=== PATIENT | female | born 1985 | race Caucasian/White ===

== ENCOUNTER 2019-06-24 08:00 | Inpatient (IN) | payer BC, OTHER ==
[~2019-06-24] VITALS: Ht 170.2 cm; Wt 98.9 kg
[2019-06-24] VITALS (41 sets, daily range): BP systolic 109–152; BP diastolic 57–87
--- NOTE | 2019-06-24 07:40 | Discharge Instructions ---
Discharge Instructions Discharge Medications New, Converted or Re-Newed RX: RX on Chart Patient Instructions Return to The Hospital For: As directed Activity & Diet Discharge Diet: No Restrictions Activity as Tolerated: No Orders-Post D/C & Referrals Follow Up Appt: Call to make follow up appt. for patient in 4 weeks. Activity Per routine post vaginal delivery instructions. Please call in RX to patient pharmacy. Diet as tolerated Patient may shower or tub bathe as desired. KIARA VEGAS MD Jun 24, 2019 07:40
--- NOTE | 2019-06-24 07:44 | History & Physical ---
History and Physical Date Seen by Provider: Jun 24, 2019 Time Seen by Provider: 09:00 This patient is a 34-year-old white female admitted at 39 4/7 weeks' gestation for labor induction. Her cervix is favorable at 4 cm and 70 TO 80 percent with presenting part vertex at 0 to -1 station. Cervix is anterior and soft. Patient denies rupture membranes or bleeding. She's had no problems with this . Her GBS culture was negative. Allergies are none Medications are vitamins HEENT exam is normal Neck is supple no lymphadenopathy no thyromegaly Abdomen is gravid soft nontender nondistended Extreme show no clubbing or cyanosis. There is no time. Pelvic exam is pending - last exam in clinic showed a cervix 4 cm dilated 70-80 percent effaced and 0 to -1 station vertex presentation with the cervix it was soft stretchy and anterior Assessment and plan term at 39+ weeks gestation admitted now for elective induction of labor anticipation is for a vaginal delivery 39+ week elective labor induction. Allergies and Home Medications Allergies Coded Allergies: No Known Drug Allergies (Unverified , 09/05/12) Home Medications Hydrocodone Bit/Acetaminophen 1 Tab Tablet, 1-2 TAB PO Q3HRS PRN, (Reported) Ibuprofen 800 Mg Tab, 800 MG PO Q8HR, (Reported) Patient Home Medication List Home Medication List Reviewed: Yes KIARA VEGAS MD Jun 24, 2019 07:44
[~2019-06-24 08:00] MED LIST: ACHYD1T PO; IBP800T PO; PREN-115 PO
--- NOTE | 2019-06-24 09:53 | NUR ---
OLINDA HUERTA presented to unit from home, accompanied by , with c/o INDUCTION. OLINDA HUERTA weighed, gowned, voided, and to bed. EFHM and TOCO applied, VS taken. OLINDA HUERTA oriented to bed controls, call light, TV, heat, and A/C controls.
[2019-06-24] MEDS ORDERED: D5 LR IV SOLUTION 1,000 ML IV SCH (10:24)
[2019-06-24 10:38] LABS: BASOPHILS % (AUTO) 0 % (0-10); EOSINOPHILS # (AUTO) 0.1 10^3/uL (0.0-0.3); EOSINOPHILS % (AUTO) 1 % (0-10); HEMATOCRIT 37 % (35-52); HEMOGLOBIN 12.7 G/DL (11.5-16.0); LYMPHOCYTES # (AUTO) 2.3 X 10^3 (1.0-4.0); LYMPHOCYTES % (AUTO) 21 % (12-44); MEAN CORPUSCULAR HEMOGLOBIN 28 PG (25-34); MEAN CORPUSCULAR HGB CONC 34 G/DL (32-36); MEAN CORPUSCULAR VOLUME 83 FL (80-99); MEAN PLATELET VOLUME 12.2 FL (7.4-10.4); MONOCYTES # (AUTO) 0.4 X 10^3 (0.0-1.0); MONOCYTES % (AUTO) 4 % (0-12); NEUTROPHILS % (AUTO) 74 % (42-75); PLATELET COUNT 207 10^3/uL (130-400); RED CELL DISTRIBUTION WIDTH 13.9 % (10.0-14.5); WHITE BLOOD COUNT 10.8 10^3/uL (4.3-11.0)
[2019-06-24] MEDS ORDERED: SUFENTA 0.6MCG/ML BUPIVA 0.125 100 ML ONE (11:03)
[2019-06-24] MEDS ORDERED: BUPIVACAINE 0.25% 30 ML (SENSORCAINE) VIAL ONE (11:28)
[2019-06-24] MEDS ORDERED: fentaNYL INJECTION 100 MCG/2 ML AMP ONE (11:29)
--- NOTE | 2019-06-24 11:29 | NUR ---
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 Procedure explained, consent reviewed and signed by anesthesia. Questions answered to patient's satisfaction. Time out taken to verify correct patient/procedure. Patient up to side of bed, assisted into sitting position. Betadine prep done x3 and sterile drape applied. Local done, see anesthesia record. Test dose given, see anesthesia record for drug and dosage. Epidural catheter secured in place. Epidural placement complete. Assisted back into bed, monitors adjusted. Epidural dosed, see anesthesia record. Epidural of Sufenta/Bupivicaine @ 12 cc/hr stated per pump. Patient tolerated procedure well.
[2019-06-24] MEDS ORDERED: LACTATED RINGERS 1,000 ML IV SCH (12:14)
[2019-06-24] MEDS ORDERED: NALOXONE 0.4 MG/ML 1 ML (NARCAN) VIAL IV PRN ×2 (12:15)
[2019-06-24] MEDS ORDERED: METOCLOPRAMIDE INJ 10 MG/2 ML (REGLAN) IV PRN (12:15)
[2019-06-24] MEDS ORDERED: EPIDURAL (SUFENTA 0.6MCG/ML BUPIVA 0.125%) 100 ML BAG EPI PRN (12:15)
[2019-06-24] MEDS ORDERED: diphenhydrAMINE 50 MG/ML INJ (BENADRYL) IV PRN (12:15)
[2019-06-24] MEDS ORDERED: ONDANSETRON 4 MG/2 ML (SDV) Z0FRAN IV PRN (12:15)
[2019-06-24] MEDS ORDERED: OXYTOCIN/NORMAL SALINE 500 ML IV ONE (13:08)
[2019-06-24] MEDS ORDERED: OXYTOCIN/NORMAL SALINE 500 ML IV SCH ×2 (13:13→17:34)
[2019-06-24] MEDS ORDERED: CITRIC ACID/SOB CIT (BICITRA) 30 ML UDC ONE (13:52)
[2019-06-24] MEDS ORDERED: FAMOTIDINE 20MG/2ML IV (PEPCID) IVP PRN (14:00)
[2019-06-24] MEDS ORDERED: CITRIC ACID/SOB CIT (BICITRA) 30 ML UDC PO ONE (14:00)
[2019-06-24] MEDS ORDERED: LIDOCAINE/EPI 2% 1:200,00 (XYLOCAINE) 10 ML VIAL ONE (16:47)
[2019-06-24] MEDS ORDERED: KETOROLAC 30 MG/ML VIAL ONE (17:44)
[2019-06-24] MEDS ORDERED: oxyCODONE/APAP 5/325MG (PERCOCET 5) TABLET PO PRN (17:45)
[2019-06-24] MEDS ORDERED: TETANUS,DIPTH,PERTUSS P/F (BOOSTRIX) 0.5 ML VIAL IM ONE (17:45)
[2019-06-24] MEDS ORDERED: KETOROLAC 30 MG/ML VIAL IVP PRN (17:45)
[2019-06-24] MEDS ORDERED: ONDANSETRON 4 MG/2 ML (SDV) Z0FRAN IVP PRN (17:45)
[2019-06-24] MEDS ORDERED: BENZOCAINE/MENTHOL (DERMOPLAST) 56 ML CAN TP PRN (17:45)
--- NOTE | 2019-06-24 19:30 | NUR ---
Report to Kimberly Grove RN.
--- NOTE | 2019-06-24 20:00 | NUR ---
Pt up to bathroom first time since delivery, first void, pericare with assist, to wc, and tx to pp unit room 312. Oriented to call system, surroundings, and info packet, denies needs. Will cont to monitor.
[2019-06-25] MEDS ORDERED: IBUPROFEN 800 MG (MOTRIN) TAB PO ONE ×2 (00:33→06:26)
[2019-06-25 00:36] VITALS: BP 111/67
[2019-06-25] MEDS: IBUPROFEN 800 MG (MOTRIN) TAB PO SCH ×4 (00:36→18:25)
[2019-06-25] MEDS: DOCUSATE SODIUM 100 MG (COLACE) CAP PO SCH ×2 (00:36→12:00)
--- NOTE | 2019-06-25 00:56 | OPERATIVE REPORT ---
DATE OF SERVICE: 06/24/2019 The patient delivered by term spontaneous vaginal delivery at 39+ weeks gestation a viable male infant with Apgars of 8 and 9 at 1 and 5 minutes respectively, weight of 7 pounds 6 ounces. Cord blood gas of 7.22 and a time of 1705. Delivery was accomplished over a midline episiotomy that was performed when the perineal body began to tear and then mom was unable to push the baby through the perineal body. The episiotomy was performed under the epidural anesthesia that had been augmented with local in the perineal body. The delivered promptly. There was a nuchal cord x1 that was easily released. The was bulb suctioned on delivery of the head and again on completion of delivery. The umbilical cord was doubly clamped, father cut the cord, the baby was passed to mom's abdomen. Cord bloods were obtained. Placenta delivered spontaneously Lorenzo. It was normal with a 3-vessel cord. The cervix, perineal body, vaginal swartz and rectum were examined and found intact, except for the midline episiotomy, which was repaired in the usual manner with a 3-0 Vicryl suture to good hemostasis and good reapproximation. Sponge and needle counts were correct on completion of the delivery and repair. Estimated blood loss was around 200 mL. The patient remained in the LDR for recovery. The baby remained with mom. Job ID: [id number] DocumentID: [id number] Dictated Date: 06/24/2019 17:22:27 Paint Line Operator Date: 06/25/2019 00:31:35 Dictated By: KIARA VEGAS MD
[2019-06-25] MEDS ORDERED: CALCIUM CARBONATE 500 MG (TUMS) TAB.CHEW ONE (04:04)
[2019-06-25] MEDS ORDERED: CALCIUM CARBONATE 500 MG (TUMS) TAB.CHEW PO PRN (04:45)
[2019-06-25 06:29] VITALS: BP 91/54
--- NOTE | 2019-06-25 06:38 | Anesthesia-Regional Post-Op ---
Regional Patient Condition Mental Status: Alert, Oriented x3 Circulation: Same as Pre-Op Headache: Absent Sensation: Full Recovery Motor Block: Absent Post Op Complications Complications None Follow Up Care/Instructions Patient Instructions None needed. Anesthesia/Patient Condition Patient is doing well, no complaints, stable vital signs, no apparent adverse anesthesia problems. No complications reported per nursing. LINDA ANTHONY CRNA Jun 25, 2019 06:38
[2019-06-25 07:42] VITALS: BP 115/74
--- NOTE | 2019-06-25 07:42 | NUR ---
initial shift assessment completed, see interventions for further. POC reviewed, states understanding.
--- NOTE | 2019-06-25 07:51 | Progress Note ---
Standard Progress Note Progress Notes/Assess & Plan Date Seen by a Provider: Jun 25, 2019 Time Seen by a Provider: 07:50 Progress/Assessment & Plan This patient is without complaint. She is ambulating, voiding, tolerating oral intake well has good pain control. Patient requesting discharge home. Vital Signs 06/25/19 06:29 Temp 36.8 Pulse 75 Resp 18 B/P (MAP) 91/54 (66) Pulse Ox 98 O2 Delivery Room Air Vital signs are stable. Patient is afebrile. Fundus is firm below the umbilicus and nontender. Extremities show no clubbing or cyanosis. There is no Homans sign. Assessment and plan day number 1 status post term spontaneous vaginal delivery at 39+ weeks' gestation. Plan is routine convalescence care with discharge home on patient request Final Diagnosis 39 week spontaneous vaginal delivery KIARA VEGAS MD Jun 25, 2019 07:51
[2019-06-25] MEDS ORDERED: DOCU100C37 PO (07:53)
[2019-06-25] MEDS ORDERED: OXYC1TAB87 PO (07:53)
[2019-06-25] MEDS ORDERED: IBUP-1780 PO (07:53)
[2019-06-25 13:45] VITALS: BP 114/67
--- NOTE | 2019-06-25 18:28 | NUR ---
motrin and colace Rx called into [facility] per pt's request.
--- NOTE | 2019-06-25 19:00 | NUR ---
dismissal instructions given, verbalizes understanding. reviewed Rx's and follow up appointments. signature signed, placed on chart.
--- NOTE | 2019-06-25 19:30 | NUR ---
Pt ambulated to private vehicle with this RN, and @ side. secured in rear facing car seat. pt stable with no sx's of distress noted.
== END 2019-06-25 19:30 | disposition home or self-care (01) | DRG 807 ==
LOC: LDRP 09:53
PROVIDERS: ADMIT Obstetrics & Gynecology; ATTEND Obstetrics & Gynecology
PROC: 10E0XZZ Delivery of Products of Conception, External Approach (ICD-10-PCS; principal; 2019-06-24)
PROC: 0W8NXZZ Division of Female Perineum, External Approach (ICD-10-PCS; 2019-06-24)
PROC: 3E033VJ Introduction of Other Hormone into Peripheral Vein, Percutaneous Approach (ICD-10-PCS; 2019-06-24)
DX: O69.81X0 Labor and delivery complicated by cord around neck, without compression, not applicable or unspecified (principal); Z37.0 Single live birth; Z3A.39 39 weeks gestation of pregnancy
CPT/HCPCS: 36415; 85025; 86850; 86900; 86901